=== PATIENT | female | born 1995 | race Caucasian/White ===

== ENCOUNTER 2017-04-04 22:25 | Emergency (ER) | payer OTHER ==
[2017-04-04 22:37] VITALS: RESP 20; O2SAT 100
[2017-04-04] MEDS ORDERED: Sodium Chloride 0.9% 1,000 ML IV ONE (22:52)
[2017-04-04 23:04] LABS: RBC URINE < 1 /hpf (0-3); URINE BACTERIA OCC (<OCC); URINE BILIRUBIN NEGATIVE (NEGATIVE); URINE BLOOD NEGATIVE (NEGATIVE); URINE COLOR Straw (YELLOW); URINE GLUCOSE (UA) NORMAL (Normal); URINE KETONE TRACE mg/dL (NEGATIVE); URINE LEUKOCYTE ESTERASE NEG Leu/uL (Negative); URINE PROTEIN NEGATIVE (NEGATIVE); URINE UROBILINOGEN NORMAL mg/dL (0.2-1.0); WBC URINE < 1 /hpf (0-5)
[2017-04-04] MEDS ORDERED: Sodium Chloride 0.9% 1,000 ML ONE (23:05)
[2017-04-04 23:06] LABS: BASO # 0.1 K/uL (0.0-0.2); BASO % 0.7 % (0.0-2.0); EOS # 0.1 K/uL (0.0-0.7); EOS % 0.6 % (0.0-4.0); HEMATOCRIT 33.8 % (34.0-47.0); LYMPH # 1.5 K/uL (1.0-4.3); LYMPH % 13.8 % (20.0-40.0); MEAN CELL VOLUME 79.9 fL (81.0-99.0); MEAN CORPUSCULAR HEMOGLOBIN 26.5 pg (27.0-31.0); MEAN CORPUSCULAR HGB CONC 33.1 g/dL (33.0-37.0); MEAN PLATELET VOLUME 8.5 fL (7.2-11.7); MONO # 0.4 K/uL (0.0-0.8); MONO % 3.8 % (0.0-10.0); RED CELL DISTRIBUTION WIDTH 13.6 % (11.5-14.5)
[2017-04-04 23:15] LABS: CHLORIDE 100 mmol/L (98-107); POTASSIUM 3.9 mmol/L (3.6-5.2); SODIUM 137 mmol/L (132-148)
[2017-04-04 23:17] LABS: GFR AFRICAN-AMERICAN > 60
[2017-04-04 23:18] LABS: ALB/GLOB RATIO 1.2 (1.0-2.1); ALKALINE PHOSPHATASE 61 U/L (38-126); ALT/SGPT 20 U/L (9-52); AST/SGOT 21 U/L (14-36); BILIRUBIN,TOTAL 0.6 mg/dL (0.2-1.3); BLOOD UREA NITROGEN 8 mg/dL (7-17); CALCIUM 8.7 mg/dl (8.6-10.4); CARBON DIOXIDE 21 mmol/L (22-30); GLUCOSE,RANDOM 106 mg/dL (65-105); TOTAL PROTEIN 7.4 g/dL (6.3-8.3)
[2017-04-05 00:14] VITALS: BP 97/60; PULSE 73; TEMP 97.8
--- NOTE | 2017-04-05 00:52 | C.PDOC ---
History Of Present Illness 21 year old female presents to the ED with complaints of multiple episodes of vomiting beginning a few hours prior to arrival. Patient states she ate greasy foods including nachos and cheese and vomited. She denies symptoms prior to eating, fever, or chills. Time Seen by Provider: 04/04/17 22:50 Chief Complaint (Nursing): Abdominal Pain History Per: Patient History/Exam Limitations: no limitations Onset/Duration Of Symptoms: Hrs Current Symptoms Are (Timing): Better Context: Food Location Of Pain/Discomfort: Diffuse Radiation Of Pain To:: None Quality Of Discomfort: "Pain" Associated Symptoms: Nausea, Vomiting. denies: Fever, Chills, Diarrhea Recent travel outside of the [place]: No Abnormal Vaginal Bleeding: No Past Medical History Reviewed: Historical Data, Nursing Documentation, Vital Signs Vital Signs: Last Vital Signs Temp 97.8 F 04/05/17 00:13 Pulse 73 04/05/17 00:13 Resp 20 04/05/17 00:13 BP 97/60 L 04/05/17 00:13 Pulse Ox 100 04/05/17 01:13 Family History: States: Unknown Family Hx - Social History Hx Alcohol Use: Yes Hx Substance Use: No Review Of Systems Constitutional: Negative for: Fever, Chills Cardiovascular: Negative for: Chest Pain, Palpitations Respiratory: Negative for: Cough, Shortness of Breath Gastrointestinal: Positive for: Nausea, Vomiting. Negative for: Diarrhea Genitourinary: Negative for: Dysuria, Hematuria Musculoskeletal: Negative for: Back Pain Physical Exam - Physical Exam Appears: Non-toxic, No Acute Distress Skin: Warm, Dry Head: Atraumatic Eye(s): bilateral: Normal Inspection, EOMI Oral Mucosa: Moist Neck: Supple Chest: Symmetrical, No Deformity Cardiovascular: Rhythm Regular Respiratory: Normal Breath Sounds, No Rales, No Rhonchi, No Wheezing Gastrointestinal/Abdominal: Soft, No Tenderness, No Distention, No Guarding, No Rebound Neurological/Psych: Oriented x3, Normal Speech, Normal Cognition ED Course And Treatment - Laboratory Results Result Diagrams: 04/04/17 23:03 04/04/17 23:03 O2 Sat by Pulse Oximetry: 100 (room air ) Progress Note: Patient was given Pepcid, Zofran, and IV fluids. Disposition - Disposition Referrals: [facility] Bloom, [Non-Staff] - Disposition: HOME/ ROUTINE Disposition Time: 23:50 Condition: IMPROVED Additional Instructions: Thank you for letting us take care of you today. Your provider was Dr. Ruby. You were treated for gastritis. The emergency medical care you received today was directed at your acute symptoms. If you were prescribed any medication, please fill it and take as directed. It may take several days for your symptoms to resolve. Return to the Emergency Department if your symptoms worsen, do not improve, or if you have any other problems. Please contact your doctor or call one of the physicians/clinics you have been referred to that are listed on the Patient Visit Information form that is included in your discharge packet. Bring any paperwork you were given at discharge with you along with any medications you are taking to your follow up visit. Our treatment cannot replace ongoing medical care by a primary care provider (PCP) outside of the emergency department. Thank you for allowing the [facility] team to be part of your care today. Follow up with your doctor in 2-3 days for re-evaluation and further management. Prescriptions: Ranitidine HCl [Zantac] 150 mg PO BID #20 tablet Instructions: Gastritis (ED) Forms: [facility] (E[place]ian) - Clinical Impression Clinical Impression: Gastritis - Scribe Statement The provider has reviewed the documentation as recorded by the Scribe Rocio Price All medical record entries made by the Scribe were at my direction and personally dictated by me. I have reviewed the chart and agree that the record accurately reflects my personal performance of the history, physical exam, medical decision making, and the department course for this patient. I have also personally directed, reviewed, and agree with the discharge instructions and disposition.
== END 2017-04-05 00:13 | disposition home or self-care (01) ==
LOC: C.ER 22:25
DX: K29.70 Gastritis, unspecified, without bleeding (principal)
CPT/HCPCS: 80053; 81001; 83690; 85025; 96361; 96374; 96375; 99284; J2405; J7040